=== PATIENT | female | born 1960 | race Caucasian/White ===

== ENCOUNTER 2021-08-23 20:53 | Inpatient (IN) | payer MEDICAID ==
[~2021-08-23] VITALS: Ht 162.6 cm; Wt 82.1 kg
[2021-08-23 20:54] VITALS: BP 128/50
[2021-08-23 21:14] LABS: BE -2.6 mmol/L (-2 to +3); PCO2 28.4 mmHg (35.0-45.0); pH 7.467 (7.340-7.450)
[2021-08-23 21:18] LABS: PO2 59.7 mmHg (75.0-100.0)
[2021-08-23 21:47] LABS: INFLUENZA A ANTIGEN Negative (Negative); INFLUENZA B ANTIGEN Negative (Negative)
[2021-08-23 21:56] LABS: HEMATOCRIT 33.7 % (37.0-47.0); HEMOGLOBIN 11.5 gm/dL (12.0-15.0); MCH 30.1 pg (26.0-34.0); MCV 88.6 fL (80.0-100.0); MPV 7.7 fl. (7.2-11.1); NUCLEATED RBCS 0 /100WBC; PLATELET COUNT* 156 thou/uL (150-400); RBC 3.81 mil/uL (4.20-5.00); RDW-CV 13.2 % (10.5-14.5); WBC 14.9 thou/uL (4.0-11.0)
[2021-08-23 22:05] LABS: CALCIUM 8.5 mg/dL (8.5-10.1); CREATININE 1.7 mg/dL (0.6-1.3); POTASSIUM 3.7 mmol/L (3.5-5.1)
[2021-08-23 22:09] LABS: ALBUMIN 3.4 g/dL (3.4-5.0); MAGNESIUM 1.7 mg/dL (1.8-2.4); TOTAL BILIRUBIN 0.6 mg/dL (<0.1-1.0); TOTAL PROTEIN 7.3 g/dL (6.4-8.2)
[2021-08-23 22:24] LABS: URINE BILIRUBIN NEGATIVE (Negative); URINE BLOOD 2+ (Negative); URINE CLARITY CLEAR; URINE COLOR YELLOW; URINE GLUCOSE-RANDOM NEGATIVE (Negative); URINE KETONES NEGATIVE (Negative); URINE NITRITE-REFLEX NEGATIVE (Negative); URINE PROTEIN 2+ (Negative); URINE UROBILINOGEN 0.2 E.U./dl (0.2-1.0)
[2021-08-23 22:28] LABS: URINE LEUKOCYTES-REFLEX 2+ (Negative)
[2021-08-23 22:32] LABS: MUCUS None Seen strn/LPF (None Seen); SQUAMOUS 0-3 Few /LPF (0-3)
[2021-08-23 22:33] LABS: CASTS None Seen /LPF (None Seen); CRYSTALS None Seen /LPF (None Seen); URINE RBC 3-10 Few /HPF (0-2); URINE WBC-REFLEX >25 Many /HPF (0-5)
[2021-08-23 22:34] LABS: BACTERIA-REFLEX 1-9 Few /HPF (None Seen)
[2021-08-23 22:40] LABS: ABSOLUTE LYMPHOCYTES 1.8 thou/uL (0.8-5.3); ABSOLUTE MONOCYTES 0.4 thou/uL (0.0-1.2); ABSOLUTE NEUTROPHILS 12.7 thou/uL (1.6-8.1); PLATELET ESTIMATE ADEQUATE
[2021-08-23] MEDS ORDERED: TRELEGY ELLIPT1 EAC1 (23:57)
[2021-08-23] MEDS ORDERED: CARBAMAZEPINE100 M2 PO (23:58)
[2021-08-23] MEDS ORDERED: ABILIFY10 MG (23:59)
[2021-08-23] MEDS ORDERED: ANASTROZOLE5 GM PO (23:59)
[2021-08-24] MEDS ORDERED: CLONIDINE PO
[2021-08-24] MEDS ORDERED: CALCIUM PO (00:01)
[2021-08-24] MEDS ORDERED: LINZESS (00:01)
[2021-08-24] MEDS ORDERED: SINGULAIR 10 MG10 MG (00:02)
[2021-08-24] MEDS ORDERED: BUSPIRONE HCL10 MG PO (00:02)
[2021-08-24] MEDS ORDERED: ? B/P MED (00:04)
[2021-08-24 00:15] LABS: INR 1.1; PROTIME 11.4 Seconds (9.20-11.50)
[2021-08-24 04:00] VITALS: BP 98/55
[2021-08-24] MEDS ORDERED: LISINOPRIL10 MG (05:34)
[2021-08-24 08:20] VITALS: BP 116/68
--- NOTE | 2021-08-24 08:54 | EKG ---
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[place] : 1960 Requested By: Jonna Chris Order Number: [id number] MD: Duane Solano Measurements Intervals [place] Rate: 132 P: 66 RI: 114 QRS: -38 QRSD: 116 T: -13 QT: 329 QTc: 488 Interpretive Statements Sinus tachycardia Incomplete right bundle branch block Diffuse ST segment depression, consider ischemia Low voltage, extremity and precordial leads No previous ECG available for comparison Electronically Signed On 08-24-2021 8:54:21 BLANKMAKER by Duane Solano [email or web address] <ELECTRONICALLY SIGNED> By: Duane Solano MD, FACC 08/24/21853 52 52 Duane Solano MD, FAC /EPI
--- NOTE | 2021-08-24 08:55 | EKG ---
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1960 Requested By: Jonna Chris Order Number: [id number] MD: Duane Solano Measurements Intervals [place] Rate: 137 P: 89 UT: 114 QRS: -80 QRSD: 112 T: -15 QT: 340 QTc: 514 Interpretive Statements Sinus tachycardia Low voltage, extremity and precordial leads Nonspecific ST depression, consider ischemia Prolonged QT interval Compared to ECG 08/23/2021 20:53:22 No significant changes noted Electronically Signed On 08-24-2021 8:54:54 [employer]ATIONS OFFICER by Duane Solano [email or web address] <ELECTRONICALLY SIGNED> By: Duane Solano MD, FACC 08/24/21 0854 00 00 Duane Solano MD, FACC /EPI
--- NOTE | 2021-08-24 08:56 | EKG ---
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: : 1960 Requested By: Jonna Chris Order Number: [id number] MD: Duane Solano Measurements Intervals [place] Rate: 70 P: 87 MT: 145 QRS: 110 QRSD: 97 T: 1 QT: 417 QTc: 450 Interpretive Statements Sinus rhythm Atrial premature complex Probable lateral infarct, old Compared to ECG 08/23/2021 21:01:51 Sinus tachycardia no longer present ST (T wave) deviation no longer present Prolonged QT interval no longer present Myocardial infarct finding still present Electronically Signed On 08-24-2021 8:55:55 COSTING MANAGER by Duane Solano [email or web address] <ELECTRONICALLY SIGNED> By: Duane Solano MD, FACC 08/24/21 0855 0 0 Duane Solano MD, FAC /EPI
[2021-08-24] MEDS ORDERED: ARIMIDEX1 MG PO (09:16)
[2021-08-24] MEDS ORDERED: ABILIFY10 MG PO (09:17)
[2021-08-24] MEDS ORDERED: CALCIUM500 MG PO (09:19)
[2021-08-24] MEDS ORDERED: CLONIDINE HCL0.1 M1 PO (09:21)
[2021-08-24] MEDS ORDERED: TRELEGY ELLIPT1 EACH INH (09:25)
[2021-08-24] MEDS ORDERED: ZYRTEC10 M2 PO (09:26)
[2021-08-24] MEDS ORDERED: SINGULAIR 10 MG10 M1 PO (09:26)
[2021-08-24] MEDS ORDERED: ZYRTEC10 M5 PO (09:27)
[2021-08-24] MEDS ORDERED: LISINOPRIL10 MG PO (09:27)
[2021-08-24] MEDS ORDERED: LINZESS72 MCG PO (09:29)
[2021-08-24] MEDS ORDERED: PROTONIX40 M2 PO (09:30)
[2021-08-24 11:49] VITALS: BP 98/53
--- NOTE | 2021-08-24 13:06 | 2DMMODE ---
[place] [address] 2 D/M-MODE ECHOCARDIOGRAM Name: EULACLARISA Room: 1701 ADM IN .R.#: [id number] Admission: 08/24/21 Attend Phys: Lanny Arzola, Discharge: Date of : 60 Date of Service: 08/24/21 1305 Report #: [id number] THIS REPORT FOR: cc: [facility] - Clinic physician unknown [facility] - Clinic physician unknown Rebel Espinoza MD [facility] ~ APPROVED REPORT Study performed: 08/24/2021 10:15:03 EXAM: Comprehensive 2D, Doppler, and color-flow Echocardiogram Patient Location: In-Patient Room #: er Status: routine BSA: 1.83 HR: 68 bpm BP: 91/54 mmHg Rhythm: NSR Other Information Study Quality: Good Indications Elevated Troponin 2D Dimensions IVSd: 13.04 (7-11mm) LVOT Diam: 19.89 (18-24mm) LVDd: 45.55 mm PWd: 12.17 (7-11mm) Ascending Ao: 35.31 (22-36mm) LVDs: 24.30 (25-40mm) Aortic Root: 30.18 mm Volumes Left Atrial Volume (Systole) LA ESV Index: 39.20 mL/m2 Aortic Valve AoV Peak Federico.: 1.77 m/s AO Peak Gr.: 12.48 mmHg LVOT Max P.26 mmHg AO Mean Gr.: 6.32 mmHg LVOT Mean P.03 mmHg LVOT Max V: 1.52 m/s AO V2 VTI: 30.14 cm LVOT Mean V: 0.90 m/s LUIS (VTI): 3.04 cm2 LVOT V1 VTI: 29.45 [place] [address] 2 D/M-MODE ECHOCARDIOGRAM Name: CLARISA FORDE Room: [address] IN M.R.#: [id number] Admission: 08/24/21 Attend Phys: Lanny Arzola, Discharge: Date of : 60 Date of Service: 08/24/21 1305 Report #: [id number] Mitral Valve E/A Ratio: 1.23 MV Decel. Time: 223.75 ms MV E Max Federico.: 1.08 m/s MV PHT: 64.89 ms MVA (PHT): 3.39 cm2 TDI E/Lateral E': 9.82 E/Medial E': 8.31 Medial E' Federico.: 0.13 m/s Lateral E' Federico.: 0.11 m/s Pulmonary Valve PV Peak Federico.: 1.08 m/s PV Peak Gr.: 4.68 mmHg Tricuspid Valve RAP Estimate: 5.00 mmHg TR Peak Gr.: 31.70 mmHg RVSP: 36.00 mmHg PA Pressure: 36.00 mmHg Left Ventricle The left ventricle is normal size. There is normal LV segmental wall motion. There is normal left ventricular wall thickness. Left ventricular systolic function is normal. The left ventricular ejection fraction is within the normal range. LVEF is 60-65%. The left ventricular diastolic function is normal. Right Ventricle The right ventricle is normal size. The right ventricular systolic function is normal. Atria Left atrium is mildly dilated. The right atrium size is normal. Aortic Valve The aortic valve is normal in structure. No aortic regurgitation is present. There is no aortic valvular stenosis. Mitral Valve There is mitral annular calcification. Mild mitral regurgitation. No evidence of mitral valve stenosis. Tricuspid Valve The tricuspid valve is normal in structure. Moderate tricuspid regurgitation. [place] [address] 2 D/M-MODE ECHOCARDIOGRAM Name: CLARISA FORDE Room: [address] IN [facility]#: [id number] Admission: 08/24/21 Attend Phys: Lanny Arzola, Discharge: Date of : 60 Date of Service: 08/24/21 1305 Report #: [id number] Pulmonic Valve The pulmonary valve is normal in structure. There is no pulmonic valvular regurgitation. Great Vessels The aortic root is normal in size. IVC is normal in size and collapses >50% with inspiration. Pericardium There is no pericardial effusion. <Conclusion> The left ventricle is normal size. There is normal left ventricular wall thickness. Left ventricular systolic function is normal. The left ventricular ejection fraction is within the normal range. LVEF is 60-65%. The left ventricular diastolic function is normal. The right ventricle is normal size. Left atrium is mildly dilated. The right atrium size is normal. The aortic valve is normal in structure. There is mitral annular calcification. Mild mitral regurgitation. The tricuspid valve is normal in structure. Moderate tricuspid regurgitation. Mild pulmonary hypertension. IVC is normal in size and collapses >50% with inspiration. There is no pericardial effusion. There is normal LV segmental wall motion. <ELECTRONICALLY SIGNED> By: Rebel Espinoza MD, FACC 08/24/21 1305 04 130 Rebel Espinoza MD, FACC /INF
[2021-08-24 14:00] LABS: CHOLESTEROL 131 mg/dL (<200); HDL CHOLESTEROL 63 mg/dL (>40); LDL CHOLESTEROL 61 mg/dL (<100); TC:HDL 2.1 Ratio (Not establshd); TRIGLYCERIDE 36 mg/dL (<150); VLDL 7 mg/dL (<40)
[2021-08-24 14:03] LABS: SERUM ASSESSMENT Clear
[2021-08-24 15:55] VITALS: BP 105/55
[2021-08-24 20:00] VITALS: BP 99/48
[2021-08-25] VITALS (7 sets, daily range): BP systolic 95–109; BP diastolic 47–62
[2021-08-25 03:17] LABS: HEMATOCRIT 26.8 % (37.0-47.0); MCH 30.6 pg (26.0-34.0); MCHC 33.6 g/dL (28.0-37.0); MCV 91.1 fL (80.0-100.0); MPV 8.4 fl. (7.2-11.1); RBC 2.94 mil/uL (4.20-5.00); RDW-CV 13.6 % (10.5-14.5); WBC 9.6 thou/uL (4.0-11.0)
[2021-08-25 03:32] LABS: CALCIUM 7.8 mg/dL (8.5-10.1); CREATININE 1.2 mg/dL (0.6-1.3)
[2021-08-26 00:54] VITALS: BP 115/64
[2021-08-26 03:50] LABS: ABSOLUTE EOSINOPHILS 0.3 thou/uL (0.0-0.7); ABSOLUTE LYMPHOCYTES 1.1 thou/uL (0.8-5.3); ABSOLUTE MONOCYTES 0.3 thou/uL (0.0-1.2); ABSOLUTE NEUTROPHILS 5.3 thou/uL (1.6-8.1); BASOPHILS 0.3 %; HEMATOCRIT 28.1 % (37.0-47.0); HEMOGLOBIN 9.7 gm/dL (12.0-15.0); LYMPHOCYTES 15.4 %; MCH 30.4 pg (26.0-34.0); MCHC 34.5 g/dL (28.0-37.0); MCV 88.3 fL (80.0-100.0); MONOCYTES 4.9 %; MPV 8.7 fl. (7.2-11.1); NUCLEATED RBCS 0 /100WBC; PLATELET COUNT* 119 thou/uL (150-400); POLYS 75.4 %; RBC 3.18 mil/uL (4.20-5.00); RDW-CV 13.6 % (10.5-14.5); WBC 7.1 thou/uL (4.0-11.0)
[2021-08-26 04:00] VITALS: BP 124/75
[2021-08-26 04:10] LABS: ALBUMIN 2.5 g/dL (3.4-5.0); CREATININE 1.2 mg/dL (0.6-1.3); POTASSIUM 3.3 mmol/L (3.5-5.1); TOTAL BILIRUBIN 0.2 mg/dL (<0.1-1.0); TOTAL PROTEIN 6.1 g/dL (6.4-8.2)
[2021-08-26 08:00] VITALS: BP 128/68
[2021-08-26 12:34] VITALS: BP 109/59
[2021-08-26 16:00] VITALS: BP 133/70
[2021-08-26 20:00] VITALS: BP 117/69
[2021-08-27 00:50] VITALS: BP 161/69
[2021-08-27 04:35] VITALS: BP 127/70
[2021-08-27 12:12] VITALS: BP 170/78
[2021-08-27] MEDS ORDERED: CEFUROXIME500 MG PO (14:51)
[2021-08-27 15:09] VITALS: BP 170/78
== END 2021-08-27 16:25 | disposition home or self-care (01) | DRG 871 ==
LOC: M.ERS 20:53 → M.TBA-ER 08-24 00:20 → M.ORTHSURG 08-25 10:26
PROVIDERS: Internal Medicine; Personal Emergency Response Attendant; Registered Nurse; ADMIT Internal Medicine; ATTEND Internal Medicine
DX: A41.51 Sepsis due to Escherichia coli [E. coli] (principal); I21.4 Non-ST elevation (NSTEMI) myocardial infarction; G92.8 Other toxic encephalopathy; N39.0 Urinary tract infection, site not specified; E87.2 Acidosis; N17.9 Acute kidney failure, unspecified; J44.9 Chronic obstructive pulmonary disease, unspecified; F31.9 Bipolar disorder, unspecified; Z20.822 Contact with and (suspected) exposure to COVID-19; J30.2 Other seasonal allergic rhinitis; Z96.653 Presence of artificial knee joint, bilateral; D64.9 Anemia, unspecified; I51.9 Heart disease, unspecified; Z79.899 Other long term (current) drug therapy; Z85.3 Personal history of malignant neoplasm of breast; Z88.8 Allergy status to other drugs, medicaments and biological substances; Z90.710 Acquired absence of both cervix and uterus